=== PATIENT | male | born 2000 | race Two or more races ===

== ENCOUNTER 2023-04-17 17:01 | Emergency (ER) | payer OTHER ==
[~2023-04-17] VITALS: Ht 180.3 cm; Wt 56.7 kg
[2023-04-17 22:02] LABS: HEMATOCRIT 41.5 % (39.0-48.0); HEMOGLOBIN 13.7 g/dL (13-16.00); MEAN CELL VOLUME 90.7 fL (80.0-100.00); MEAN CORPUSCULAR HEMOGLOBIN 29.9 pg (27.00-32.0); MEAN CORPUSCULAR HGB CONC 32.9 g/dl (32.0-36.0); PLATELET COUNT 193 K/uL (150-450); RED BLOOD COUNT 4.57 M/uL (4.00-6.00)
== END 2023-04-17 23:23 | disposition home or self-care (01) ==
LOC: ER 17:02
DX: J06.9 Acute upper respiratory infection, unspecified (principal); Z20.822 Contact with and (suspected) exposure to COVID-19